=== PATIENT | female | born 1955 | race Caucasian/White ===

== ENCOUNTER → 2020-04-01 14:22 | Outpatient (BNVA) | payer MEDICARE, MEDICAID, SELFPAY | PROVIDERS: PCP Family Medicine; Visit Provider Family Medicine | DX: E11.9 Type 2 diabetes mellitus without complications (principal); J44.9 Chronic obstructive pulmonary disease, unspecified; I10 Essential (primary) hypertension; K21.9 Gastro-esophageal reflux disease without esophagitis; F32.9 Major depressive disorder, single episode, unspecified; L30.9 Dermatitis, unspecified | CPT/HCPCS: 80053; 80061; 83036; 84443; 85025 ==

== ENCOUNTER → 2020-10-07 15:34 | Outpatient (BNVA) | payer MEDICARE, MEDICAID, SELFPAY | PROVIDERS: PCP Family Medicine; Visit Provider Family Medicine | DX: E11.9 Type 2 diabetes mellitus without complications (principal); I10 Essential (primary) hypertension; J44.9 Chronic obstructive pulmonary disease, unspecified; K21.9 Gastro-esophageal reflux disease without esophagitis | CPT/HCPCS: 80053; 80061; 83036; 84443; 85025 ==

== ENCOUNTER → 2020-11-26 15:57 | Outpatient (BNVA) | payer MEDICARE, MEDICAID, SELFPAY | PROVIDERS: PCP Family Medicine; Visit Provider Nurse Practitioner Family | DX: E11.9 Type 2 diabetes mellitus without complications (principal); J02.9 Acute pharyngitis, unspecified | CPT/HCPCS: 87071; 87880 ==

== ENCOUNTER → 2021-03-25 15:48 | Outpatient (BNVA) | payer MEDICARE, MEDICAID, SELFPAY | PROVIDERS: PCP Family Medicine; Visit Provider Family Medicine | DX: K21.9 Gastro-esophageal reflux disease without esophagitis (principal); E11.9 Type 2 diabetes mellitus without complications; I10 Essential (primary) hypertension; J43.1 Panlobular emphysema | CPT/HCPCS: 80053; 80061; 83036; 84443 ==

== ENCOUNTER → 2021-06-09 11:35 | Outpatient (BNVA) | payer MEDICARE, MEDICAID, SELFPAY | PROVIDERS: PCP Family Medicine; Visit Provider Family Medicine | DX: E11.9 Type 2 diabetes mellitus without complications (principal); E78.5 Hyperlipidemia, unspecified; J43.1 Panlobular emphysema; K21.9 Gastro-esophageal reflux disease without esophagitis | CPT/HCPCS: 80053; 80061; 83036; 84443; 85025 ==

== ENCOUNTER → 2021-10-08 14:17 | Outpatient (BNVA) | payer MEDICARE, MEDICAID, SELFPAY | PROVIDERS: PCP Family Medicine; Visit Provider Nurse Practitioner Family | DX: J43.1 Panlobular emphysema (principal); K62.89 Other specified diseases of anus and rectum; R19.8 Other specified symptoms and signs involving the digestive system and abdomen; I10 Essential (primary) hypertension; E11.9 Type 2 diabetes mellitus without complications; K92.1 Melena | CPT/HCPCS: 71046; 80053; 83036 ==

== ENCOUNTER 2021-12-21 08:20 | Outpatient (CLI) | payer MEDICARE, MEDICAID, SELFPAY ==
--- NOTE | 2021-12-21 08:46 | MM_ITS ---
WS: [id number] BILATERAL DIGITAL DIAGNOSTIC MAMMOGRAM MAMMOGRAPHY WITH CAD CLINICAL INFORMATION: lump left breast TECHNIQUE: Bilateral CC, MLO, and ML views. FINDINGS: Scattered fibroglandular densities bilaterally. Vascular calcification. Palpable marker left breast. No definite underlying mammographic abnormalities. Ultrasound is pending. Right breast is unremarkable. ULTRASOUND BREAST LEFT TECHNIQUE: Ultrasound left breast focused area of concern. CLINICAL INFORMATION: lump left breast FINDINGS: Ultrasound left breast at the 10:00 position area of palpable concern 2 cm from the nipple. There is a hypoechoic ovoid lesion with some internal echogenicity. This is taller than wide on some images. S uggestion of a tiny amount of nodularity peripherally. This is not definitely cystic and Recommend fu rther evaluation with ultrasound-guided biopsy/aspiration. MM/[place] [id number] IMPRESSION: BI-RADS: 4-Suspicious Finding-Biopsy Should Be Considered FOLLOW UP: US Guided Biopsy Recommended RECOMMEND ULTRASOUND-GUIDED BIOPSY OF THE PALPABLE LESION AT THE 10:00 POSITION
--- NOTE | 2021-12-21 09:00 | US_ITS ---
WS: [id number] BILATERAL DIGITAL DIAGNOSTIC MAMMOGRAM MAMMOGRAPHY WITH CAD CLINICAL INFORMATION: lump left breast TECHNIQUE: Bilateral CC, MLO, and ML views. FINDINGS: Scattered fibroglandular densities bilaterally. Vascular calcification. Palpable marker left breast. No definite underlying mammographic abnormalities. Ultrasound is pending. Right breast is unremarkable. ULTRASOUND BREAST LEFT TECHNIQUE: Ultrasound left breast focused area of concern. CLINICAL INFORMATION: lump left breast FINDINGS: Ultrasound left breast at the 10:00 position area of palpable concern 2 cm from the nipple. There is a hypoechoic ovoid lesion with some internal echogenicity. This is taller than wide on some images. S uggestion of a tiny amount of nodularity peripherally. This is not definitely cystic and Recommend fu rther evaluation with ultrasound-guided biopsy/aspiration. US/US breast LT limited* [id number] IMPRESSION: BI-RADS: 4-Suspicious Finding-Biopsy Should Be Considered FOLLOW UP: US Guided Biopsy Recommended RECOMMEND ULTRASOUND-GUIDED BIOPSY OF THE PALPABLE LESION AT THE 10:00 POSITION
--- NOTE | 2021-12-21 09:30 | US_ITS ---
WS: [id number] INDICATION: Ultrasound soft tissue TECHNIQUE: Ultrasound soft tissue area of concern left scapula FINDINGS: Ultrasound soft tissue area of concern below the left scapula. No evidence of suspicious cy stic or solid lesion. Heterogeneous tissue in the area of concern nonspecific but may represent subcu taneous lipoma. This could be confirmed with CT if continued clinical concern. US/US soft tissue/extremity [id number] IMPRESSION: Heterogeneous tissue in the area of concern nonspecific but may rep resent subcutaneous incidental lipoma. CT scapula could be obtained for confirm ation and better anatomic detail.
== END 2021-12-21 08:21 | disposition home or self-care (01) ==
LOC: RAD 08:28
PROVIDERS: PCP Family Medicine; Visit Provider Nurse Practitioner Family
DX: M79.89 Other specified soft tissue disorders (principal); N63.22 Unspecified lump in the left breast, upper inner quadrant
CPT/HCPCS: 76642; 76882; 77066

== ENCOUNTER 2021-12-22 08:10 | Outpatient (CLI) | payer MEDICARE, MEDICAID, SELFPAY ==
--- NOTE | 2021-12-22 10:00 | CT_ITS ---
WS: [id number] CT ABDOMEN AND PELVIS WITH CONTRAST HISTORY: K42.9 - Umbilical hernia without obstruction or gangrene TECHNIQUE: Imaging performed of the abdomen and pelvis with IV contrast. Single phase imaging of the abdomen. Coronal and sagittal reformats are submitted. All CT scans at [facility] use at [address] one of these dose optimization techniques: automated exposure control; mA and/or kV adjustment per patient size (includes targeted exams where dose is matched to clinical indication); or iterative re construction. IV CONTRAST: Omnipaque 300; 75 mL IV. Oral contrast: Yes. DLP: 696.84 mGy.cm COMPARISON: None available. Lower thorax: Lung bases are clear. Heart is normal size. No hiatal hernia. Liver/biliary system: Normal size with no intrahepatic dilatation. Gallbladder: Gallbladder is contracted. Stones are present within the gallbladder lumen. No adjacent inflammation. Normal bowel duct. Pancreas: Normal size pancreas and pancreatic duct. No adjacent inflammation. Spleen: Normal size spleen. No mass or infarct. Adrenal glands: Normal. Right kidney: Normal. Left kidney: Normal. Aorta: Mild atherosclerosis with no aneurysm. Lymphadenopathy: None. Free fluid: None. GI tract: Marked dilatation of the stomach with fluid and contrast. The antrum and proximal duodenum are distended. There is no obstructive pattern identified. Good oral contrast distributed throughout the small bowel. There is mild diffuse constipation. The appendix is normal. Abdominal wall: Fat-containing umbilical hernia. The hernia is 14 mm. Pelvis: No free fluid or adenopathy within the pelvis. Mildly atrophic uterus as expected. No adnexal masses. Bones: Increase in the lumbar lordosis. No fracture. CT/CT abdomen pelvis w con* [id number] IMPRESSION: 1. No acute abdominal or pelvic abnormalities are identified. 2. Cholelithiasis without acute cholecystitis. 3. Moderate distention of the stomach and proximal duodenum. No obstruction is evident. Normal distribution of oral contrast throughout the small bowel. 4. Diffuse constipation. 5. Small fat-containing umbilical hernia. 6. No ascites or adenopathy.
[2021-12-22 10:04] LABS: Blood Urea Nitrogen 14 mg/dL (8-23); Glomerular Filtration Rate 71.3 mL/min (90-130)
[2021-12-22] MEDS: iohexol 300 mg/mL 100 mL Btl IV (10:14)
[2021-12-22 10:47] LABS: Blood Urea Nitrogen 14 mg/dL (8-23); Glomerular Filtration Rate 99.4 mL/min (90-130)
== END 2021-12-22 08:11 | disposition home or self-care (01) ==
LOC: RAD 08:12
PROVIDERS: PCP Family Medicine; Visit Provider Surgery
DX: K42.9 Umbilical hernia without obstruction or gangrene (principal); K62.5 Hemorrhage of anus and rectum; K59.00 Constipation, unspecified; K80.20 Calculus of gallbladder without cholecystitis without obstruction
CPT/HCPCS: 74177; 82565; 84520

== ENCOUNTER → 2022-01-03 11:45 | Outpatient (BNVA) | payer MEDICARE, MEDICAID, SELFPAY | PROVIDERS: PCP Family Medicine; Visit Provider Surgery | DX: Z20.822 Contact with and (suspected) exposure to COVID-19 (principal) | CPT/HCPCS: 87635 ==

== ENCOUNTER 2022-01-06 06:48 | Day surgery (SDC) | payer MEDICARE, MEDICAID, SELFPAY ==
[2022-01-03 12:54] VITALS: BMI 19.9
--- NOTE | 2022-01-06 07:28 | ANES.PREANE2 ---
Pre-Anesthetic Assessment Height/Weight: Height 1.52 m Weight 46.266 kg Preop Diagnosis: Blood in stool Operation Date: 01/06/22 08:30 Proposed Procedures p Colonoscopy 52720 K62.5 K42.9(Not Applicable) - King Alberto MD Familial anesthetic complications: None Was Beta Alejandro taken within 24 hours: Yes Was Clonidine taken within 24 hours: N/A Social No alcohol and No tobacco Exam alert, oriented x 3, clear to auscultation bilaterally and regular rate & rhythm Airway Submandibular: within normal limits Cervical ROM: within normal limits Mallampati: Class II Dentition: full Pulmonary Asthma and Chronic Obstructive Pulmonary Disease CV/HEM Hypertension GI Gastroesophageal Reflux Disease Metabolic Diabetes Mellitus Anesthetic Plan ASA status: 3 Anesthesia: MAC Risk of > 500 ml blood loss (7ml/kg in children): No Medications/Allergies Home Medications Medication Instructions Recorded Confirmed Last Taken Type blood-glucose meter (Blood Glucose #1 ea 11/26/20 01/03/22 Unknown Rx Monitoring) Calcium And Magnesium 1 tab PO DAILY 01/03/22 01/03/22 Unknown History Ventolin HFA 90 mcg/actuation See Rx Instructions .ROUTE 01/03/22 01/03/22 Unknown Rx aerosol inhaler (albuterol sulfate) .COMPLEX #36 gram NS ascorbic acid (vitamin C) 1,000 mg 1,000 mg PO DAILY 01/03/22 01/03/22 Unknown History tablet (Vitamin C) blood sugar diagnostic (True #100 ea 01/03/22 01/03/22 Unknown Rx Metrix Glucose Test Strip) cholecalciferol (vitamin D3) 1,250 See Rx Instructions .ROUTE 01/03/22 01/03/22 Unknown Rx mcg (50,000 unit) capsule (Optimal .COMPLEX #4 cap D3) cyanocobalamin (vitamin B-12) 500 500 mcg PO DAILY 01/03/22 01/03/22 Unknown History mcg tablet (Vitamin B-12) liraglutide 0.6 mg/0.1 mL (18 mg/3 See Rx Instructions .ROUTE 01/03/22 01/03/22 Unknown Rx mL) subcutaneous pen injector .COMPLEX #9 ml (Victoza 2-Trey) metformin 1,000 mg tablet,extended 1,000 mg PO BID #180 tab 01/03/22 01/03/22 Unknown Rx release 24hr metoprolol succinate 50 mg See Rx Instructions .ROUTE 01/03/22 01/03/22 Unknown Rx tablet,extended release 24 hr .COMPLEX #90 tablet montelukast 10 mg tablet 10 mg PO DAILY #90 tab 01/03/22 01/03/22 Unknown Rx (Singulair) multivitamin 1 tab PO DAILY 01/03/22 01/03/22 Unknown History omeprazole 20 mg capsule,delayed See Rx Instructions .ROUTE 01/03/22 01/03/22 Unknown Rx release .COMPLEX #180 cap paroxetine HCl 40 mg tablet See Rx Instructions .ROUTE 01/03/22 01/03/22 Unknown Rx .COMPLEX #45 tab theophylline 400 mg 400 mg PO BID 90 Days #180 tab 01/03/22 01/03/22 Unknown Rx tablet,extended release 24 hr triamcinolone acetonide 0.1 % See Rx Instructions .ROUTE 01/03/22 01/03/22 Unknown Rx topical cream .COMPLEX #80 gm zinc 50 mg capsule 50 mg PO DAILY 01/03/22 01/03/22 Unknown History Allergies Allergy/AdvReac Type Severity Reaction Status Date / Time fenofibrate [From Tricor] Allergy Unknown Unknown Verified 01/03/22 12:48 Penicillins Allergy Unknown Unknown Verified 01/03/22 12:48 simvastatin [From Zocor] Allergy Unknown UNKNOWN Verified 01/03/22 12:48 tizanidine [From Zanaflex] Allergy Unknown UNKNOWN Verified 01/03/22 12:48 [facility] Anesthesia Medical History Chronic obstructive pulmonary disease Diabetes mellitus Social History Smoking and tobacco status: never smoked Data Anesthesia Cardiac Studies: No Data to Display
[2022-01-06 07:33] VITALS: BP 107/81; PULSE 90; RESP 18; TEMP 36.9; O2SAT 99
[2022-01-06] MEDS: sodium chloride 0.9% 1,000 ML 30 ML IV (07:48)
--- NOTE | 2022-01-06 08:24 | P.HP_ITS ---
Same Day Surgery H&P Indication for Procedure/HPI DATE OF PROCEDURE: January 06, 2022 CHIEF COMPLAINT/INDICATIONFOR SURGICAL PROCEDURE: Rectal discharge PREOP DIAGNOSIS: Blood in stool PLANNED PROCEDURE: Operation Date: 01/06/22 08:30 Proposed Procedures p Colonoscopy 61647 K62.5 K42.9(Not Applicable) - King Alebrto MD 10/21/21 This is a pleasant 66 years old female patient comes today escorted by her spouse complaining of rectal discharge associated with blood in stool.? Patient reports that the discharge sometimes can be clear, reports also that she had a colonoscopy about 24 years ago because she had diarrhea and there was no significant findings at the time.? Denies history of colon cancer and she did have nonintentional weight loss with Covid exposure few months ago.? Also patient reports that she has abdominal wall hernia that has been bothering her for some time. Interim history 11/05/2022 Patient comes today for diagnostic colonoscopy ROS All systems have been reviewed negative except as per the above or per problem list Medications/Allergies* Home Medications Medication Instructions Recorded Confirmed Type Calcium And Magnesium 1 tab PO DAILY 01/03/22 01/06/22 History ascorbic acid (vitamin C) 1,000 mg 1,000 mg PO DAILY 01/03/22 01/06/22 History tablet (Vitamin C) cyanocobalamin (vitamin B-12) 500 500 mcg PO DAILY 01/03/22 01/06/22 History mcg tablet (Vitamin B-12) multivitamin 1 tab PO DAILY 01/03/22 01/06/22 History zinc 50 mg capsule 50 mg PO DAILY 01/03/22 01/06/22 History albuterol sulfate 90 mcg/actuation 2 puff INHALATION QID PRN 01/06/22 01/06/22 History aerosol inhaler (Ventolin HFA) cholecalciferol (vitamin D3) 1,250 1,250 mcg PO DAILY 01/06/22 01/06/22 History mcg (50,000 unit) capsule (Optimal D3) liraglutide 0.6 mg/0.1 mL (18 mg/3 1.8 mg SUBCUT DAILY 01/06/22 01/06/22 History mL) subcutaneous pen injector (Victoza 2-Trey) metoprolol succinate 50 mg 25 mg PO BID 01/06/22 01/06/22 History tablet,extended release 24 hr omeprazole 20 mg capsule,delayed 40 mg PO DAILY 01/06/22 01/06/22 History release paroxetine HCl 40 mg tablet 20 mg PO DAILY 01/06/22 01/06/22 History triamcinolone acetonide 0.1 % 1 applic TOPICAL BID 01/06/22 01/06/22 History topical cream Allergies/Adverse Reactions Allergy/AdvReac Type Severity Reaction Status Date / Time fenofibrate [From Tricor] Allergy Unknown Unknown Verified 01/06/22 08:50 Penicillins Allergy Unknown Unknown Verified 01/06/22 08:50 simvastatin [From Zocor] Allergy Unknown UNKNOWN Verified 01/06/22 08:50 tizanidine [From Zanaflex] Allergy Unknown UNKNOWN Verified 01/06/22 08:50 Current Medications: Generic Name Dose Route Start Last Admin Trade Name Freq PRN Reason Stop Dose Admin Sodium Chloride 1,000 mls @ 30 mls/hr 01/06/22 07:30 01/06/22 07:48 Sodium Chloride 0.9% IV 01/07/22 07:29 30 mls/hr .Q24H ROE Administration Pertinent History/Comorbid Conditions* Medical History (Updated 10/08/21 @ 15:04 by Edith Peterson NP) Chronic obstructive pulmonary disease Diabetes mellitus Social History Smoking and tobacco status: never smoked Pertinent Exam Findings alert, oriented x 3 and procedure specific exam findings (Abdominal examination nontender nondistended soft) Recommendations Surgery/Procedure today (Colonoscopy with poss Bx) Coding Level of Care Code Acute Physician Industrial for Sandy Broderick
[2022-01-06 09:25] VITALS: BP 88/53; PULSE 72; RESP 16; TEMP 36.1; O2SAT 97
--- NOTE | 2022-01-06 09:33 | P.PCN_ITS ---
PACU note Exam: awake Disposition: discharged
--- NOTE | 2022-01-06 09:33 | PM.PACU ---
PACU note Exam: awake Disposition: discharged
[2022-01-06 09:42] VITALS: BP 116/82; PULSE 77; RESP 16; O2SAT 99
== END 2022-01-06 09:51 | disposition home or self-care (01) ==
PROVIDERS: PCP Family Medicine; Visit Provider Surgery
PROC: 0DJD8ZZ Inspection of Lower Intestinal Tract, Via Natural or Artificial Opening Endoscopic (ICD-10-PCS; CPT 45378; principal; 2022-01-06 08:30)
DX: K92.1 Melena (principal); D12.2 Benign neoplasm of ascending colon; J44.9 Chronic obstructive pulmonary disease, unspecified; E11.9 Type 2 diabetes mellitus without complications; I10 Essential (primary) hypertension; K21.9 Gastro-esophageal reflux disease without esophagitis
CPT/HCPCS: 45380; 88305; J2704; J7030

== ENCOUNTER 2022-01-07 12:08 | Outpatient (CLI) | payer MEDICARE, MEDICAID, SELFPAY ==
--- NOTE | 2022-01-07 12:23 | US_ITS ---
WS: [id number] ULTRASOUND-GUIDED LEFT BREAST BIOPSY HISTORY: LEFT breast lesion at 10:00, 2 cm from the nipple. COMPARISON: 12/21/2021 Procedure, risks and complications are explained to the patient. Medications are reviewed. Consent is obtained. The mass in the LEFT breast is localized with ultrasound. Skin is cleansed with ChloraPrep and anesth etized with 1% buffered lidocaine. Small dermatome is made. Under sterile conditions mass is biopsied with a 18-gauge Achieve needle. Multiple core biopsies are performed. Material placed in formalin an d sent to pathology for review. No complications encountered. Breast tissue marker ([facility] ultrasound enhanced ribbon): None. Mass completely collapsed after the fir st biopsy. Patient left the radiology suite with no complications. Patient is instructed to return to [facility] or [facility] with any concerns. US/[place] [id number] IMPRESSION: 1. Uncomplicated core needle biopsy LEFT breast mass at 10:00. Mass completely collapsed after the first biopsy therefore thought to be a cyst. Single specim en is submitted to pathology. PATHOLOGY: Benign breast tissue with surrounding fibroadipose tissue and pigmen mihaela histiocytosis. No malignancy. RECOMMENDATION: Return to annual screening mammography.
== END 2022-01-07 12:09 | disposition home or self-care (01) ==
LOC: RAD 12:11
PROVIDERS: PCP Nurse Practitioner Family; Visit Provider Nurse Practitioner Family
DX: N63.22 Unspecified lump in the left breast, upper inner quadrant (principal)
CPT/HCPCS: 19083; 88305

== ENCOUNTER → 2022-03-08 11:38 | Outpatient (BNVA) | payer MEDICARE, MEDICAID, SELFPAY | PROVIDERS: PCP Nurse Practitioner Family; Visit Provider Nurse Practitioner Family | DX: E78.5 Hyperlipidemia, unspecified (principal); E11.9 Type 2 diabetes mellitus without complications; K21.9 Gastro-esophageal reflux disease without esophagitis; I10 Essential (primary) hypertension; J44.9 Chronic obstructive pulmonary disease, unspecified | CPT/HCPCS: 80053; 80061; 83036 ==

== ENCOUNTER 2022-04-05 06:52 | Outpatient (CLI) | payer MEDICARE, MEDICAID, SELFPAY ==
--- NOTE | 2022-04-05 07:00 | US_ITS ---
WS: [id number] RIGHT UPPER QUADRANT ULTRASOUND HISTORY: R14.0 - Abdominal distension (gaseous) COMPARISON: 12/22/2021 Liver: 15.7 cm in length. Normal size liver. No bile duct dilatation or mass. Portal Vein: Normal hepatopetal flow with monophasic waveform. Gallbladder: Normally distended gallbladder. Within the gallbladder lumen is a focal area of shadowin g which corresponds to the finding on the prior CT. This is an irregular shaped stone with a maximum diameter 14 mm. CBD: 0.5 cm Pancreas: Normal size and echogenicity. Right kidney: 9.9 cm in length. Normal size and echogenicity. No hydronephrosis or mass. Aorta and IVC: Unremarkable abdominal aorta and IVC. No ascites. US/US gall bladder [id number] IMPRESSION: 1. Cholelithiasis. No evidence for acute cholecystitis. 2. No bile duct dilatation.
== END 2022-04-05 06:53 | disposition home or self-care (01) ==
PROVIDERS: PCP Nurse Practitioner Family; Visit Provider Surgery
DX: R14.0 Abdominal distension (gaseous) (principal); R10.9 Unspecified abdominal pain; K80.20 Calculus of gallbladder without cholecystitis without obstruction
CPT/HCPCS: 76705

== ENCOUNTER → 2022-04-13 10:49 | Outpatient (BNVA) | payer MEDICARE, MEDICAID, SELFPAY | PROVIDERS: PCP Nurse Practitioner Family; Visit Provider Surgery | DX: K42.9 Umbilical hernia without obstruction or gangrene (principal); K80.20 Calculus of gallbladder without cholecystitis without obstruction | CPT/HCPCS: 99213 ==

== ENCOUNTER → 2022-08-23 11:15 | Outpatient (BNVA) | payer MEDICARE, MEDICAID, SELFPAY | PROVIDERS: PCP Nurse Practitioner Family; Visit Provider Nurse Practitioner Family | DX: E78.5 Hyperlipidemia, unspecified (principal); E11.9 Type 2 diabetes mellitus without complications; K21.9 Gastro-esophageal reflux disease without esophagitis; I10 Essential (primary) hypertension; F43.21 Adjustment disorder with depressed mood; J43.1 Panlobular emphysema | CPT/HCPCS: 80053; 80061; 83036 ==

== ENCOUNTER → 2023-03-28 14:20 | Outpatient (BNVA) | payer MEDICARE, MEDICAID, SELFPAY | PROVIDERS: PCP Nurse Practitioner Family; Visit Provider Nurse Practitioner Family | DX: E78.5 Hyperlipidemia, unspecified (principal); E11.9 Type 2 diabetes mellitus without complications; K21.9 Gastro-esophageal reflux disease without esophagitis; J44.9 Chronic obstructive pulmonary disease, unspecified; I10 Essential (primary) hypertension; J32.9 Chronic sinusitis, unspecified; E55.9 Vitamin D deficiency, unspecified; F43.21 Adjustment disorder with depressed mood | CPT/HCPCS: 80053; 80061; 82306; 83036; 84443 ==

== ENCOUNTER → 2023-10-23 16:54 | Outpatient (BNVA) | payer MEDICARE, MEDICAID, SELFPAY | PROVIDERS: PCP Nurse Practitioner Family; Visit Provider Nurse Practitioner Family | DX: E11.9 Type 2 diabetes mellitus without complications (principal); E78.5 Hyperlipidemia, unspecified; K21.9 Gastro-esophageal reflux disease without esophagitis; I10 Essential (primary) hypertension | CPT/HCPCS: 80053; 80061; 82043; 83036 ==

== ENCOUNTER → 2024-05-15 16:46 | Outpatient (BNVA) | payer MEDICARE, MEDICAID, SELFPAY | PROVIDERS: PCP Nurse Practitioner Family; Visit Provider Nurse Practitioner Family | DX: I10 Essential (primary) hypertension (principal); R19.7 Diarrhea, unspecified; E11.9 Type 2 diabetes mellitus without complications; E78.5 Hyperlipidemia, unspecified | CPT/HCPCS: 80053; 80061; 83036; 84443; 85025 ==

== ENCOUNTER → 2024-10-09 14:28 | Outpatient (BNVA) | payer MEDICARE, MEDICAID, SELFPAY | PROVIDERS: PCP Nurse Practitioner Family; Visit Provider Nurse Practitioner Family | DX: E11.9 Type 2 diabetes mellitus without complications (principal) | CPT/HCPCS: 80053; 80061; 83036; 84443; 85025 ==

== ENCOUNTER → 2024-10-23 09:14 | Outpatient (BNVA) | payer MEDICARE, MEDICAID, SELFPAY | PROVIDERS: PCP Nurse Practitioner Family; Referring Provider Nurse Practitioner Family; Visit Provider Surgery | DX: K43.9 Ventral hernia without obstruction or gangrene (principal); Z12.11 Encounter for screening for malignant neoplasm of colon; R03.0 Elevated blood-pressure reading, without diagnosis of hypertension | CPT/HCPCS: 99214 ==

== ENCOUNTER 2024-10-24 09:10 | Outpatient (CLI) | payer MEDICARE, MEDICAID, SELFPAY ==
--- NOTE | 2024-10-24 09:30 | US_ITS ---
WS: [id number] ULTRASOUND ABDOMEN CLINICAL INFORMATION: K42.9 - Umbilical hernia without obstruction or gangrene COMPARISON: None. FINDINGS: Fat-containing umbilical hernia. No herniated bowel. Liver Size: Normal. Craniocaudal length: 14.3 cm. Echogenicity: Normal. Surface nodularity: None. Mass (size and location): None. Bile ducts Intrahepatic ducts: Normal. Common bile duct diameter: 0.3 cm. Gallbladder Cholelithiasis Gallstones: Present Gallbladder sludge: None. Gallbladder wall thickening: None. Pericholecystic fluid: None. Sonographic Baca sign: Absent. Pancreas Normal as visualized. Spleen difficult to visualize Splenomegaly: None. Craniocaudal length: 12.0 cm. Right kidney: Normal. Hydronephrosis: None. Size: 9.2 cm x 4.6 cm x 3.8 cm Left kidney: Normal. Hydronephrosis: None. Size: 8.7 cm x 4.4 cm x 4.4 cm. Abdominal aorta and IVC Visualized portions are normal. Ascites: None. US/US abdomen complete* [id number] IMPRESSION: 1. Fat-containing umbilical hernia. No visualized herniated bowel. 2. Cholelithiasis 3. With normal common bile duct. 4. Otherwise normal exam
== END 2024-10-24 09:11 | disposition home or self-care (01) ==
LOC: RAD 09:11
PROVIDERS: PCP Nurse Practitioner Family; Visit Provider Nurse Practitioner Family
DX: K42.9 Umbilical hernia without obstruction or gangrene (principal); K80.20 Calculus of gallbladder without cholecystitis without obstruction
CPT/HCPCS: 76700

== ENCOUNTER 2024-11-06 08:00 | Outpatient (CLI) | payer MEDICARE, MEDICAID, SELFPAY ==
[2024-11-06] MEDS: iohexol 350 mg/mL 500 mL Btl (per mL) PO (08:08)
--- NOTE | 2024-11-06 09:00 | CTR_ITS ---
PROCEDURE INFORMATION: Exam: CT Abdomen And Pelvis With Contrast Exam date and time: 11/06/2024 9:19 AM Age: 69 years old Clinical indication: Condition or disease; Complications not specified; Other: Spigelian hernia TECHNIQUE: Imaging protocol: Computed tomography of the abdomen and pelvis with contrast. Radiation optimization: All CT scans at this facility use at least one of these dose optimization techniques: automated exposure control; mA and/or kV adjustment per patient size (includes targeted exams where dose is matched to clinical indication); or iterative reconstruction. Contrast material: OMNI 350; Contrast volume: 100 ml; Contrast route: INTRAVENOUS (IV); COMPARISON: CT abdomen pelvis w con* [id number] 12/22/2021 10:08 AM RADIATION DOSE METRICS: Total DLP (mGy-cm): 250.61 FINDINGS: Lungs: Clear lung bases. Liver: New mild, diffuse fatty infiltration of the liver. New moderate hepatomegaly. Otherwise, unremarkable liver. Gallbladder and biliary ducts: Unchanged tiny gallstone in the gallbladder. Otherwise, unremarkable. Pancreas: Normal. No ductal dilation. Spleen: Normal. No splenomegaly. Adrenal glands: Normal. No mass. Kidneys and ureters: Normal. No hydronephrosis. Stomach and bowel: Increased thickening of the wall of the gastric antrum, pyloric channel, and duodenum consistent with inflammation. Possible new 5 cm in length apple-core lesion in the colon near the ileocecal valve could be cancer. Otherwise, unremarkable. Appendix: No evidence of appendicitis. Intraperitoneal space: Unremarkable. No free air. No significant fluid collection. Vasculature: Unchanged small amount of arterial calcification. Otherwise, unremarkable. Lymph nodes: Unremarkable. No enlarged lymph nodes. Urinary bladder: Unremarkable as visualized. Reproductive: Unremarkable as visualized. Bones/joints: Unchanged mild scoliosis. Unchanged minimal and mild multilevel spondylosis. Otherwise, unremarkable. Soft tissues: Small fat containing benign-appearing umbilical hernia. This is unchanged. Otherwise, unremarkable visualized body wall. Otherwise, unremarkable soft tissues. CT/CT abdomen pelvis w con* [id number] IMPRESSION: 1. Increased thickening of the wall of the gastric antrum, pyloric channel, and duodenum consistent with inflammation. 2. Possible new 5 cm in length apple-core lesion in the colon near the ileocecal valve could be cancer. Colonoscopy is recommended. 3. New mild, diffuse fatty infiltration of the liver. 4. New moderate hepatomegaly. 5. No other acute findings. 6. Additional details as above. Unchanged.
[2024-11-06] MEDS: iohexol 350 mg/mL 500 mL Btl (per mL) IV (09:51)
== END 2024-11-06 08:01 | disposition home or self-care (01) ==
LOC: RAD 08:01
PROVIDERS: PCP Nurse Practitioner Family; Visit Provider Surgery
DX: K43.9 Ventral hernia without obstruction or gangrene (principal); K76.0 Fatty (change of) liver, not elsewhere classified; R16.0 Hepatomegaly, not elsewhere classified; M41.9 Scoliosis, unspecified; K42.9 Umbilical hernia without obstruction or gangrene; R93.5 Abnormal findings on diagnostic imaging of other abdominal regions, including retroperitoneum; M47.899 Other spondylosis, site unspecified
CPT/HCPCS: 74177

== ENCOUNTER → 2024-11-11 14:02 | Outpatient (BNVA) | payer MEDICARE, MEDICAID, SELFPAY | PROVIDERS: PCP Nurse Practitioner Family; Visit Provider Surgery | DX: K20.90 Esophagitis, unspecified without bleeding (principal); C18.9 Malignant neoplasm of colon, unspecified | CPT/HCPCS: 99213 ==

== ENCOUNTER 2024-11-19 09:24 | Day surgery (SDC) | payer MEDICARE, MEDICAID, SELFPAY ==
--- NOTE | 2024-11-19 09:30 | W.PM.OPSFHP ---
Same Day Surgery H&P Indication for Procedure/HPI DATE OF PROCEDURE: November 19, 2024 CHIEF COMPLAINT/INDICATIONFOR SURGICAL PROCEDURE: abdominal pain PREOP DIAGNOSIS: abdominal pain PLANNED PROCEDURE: Operation Date: 11/19/24 10:30 Proposed Procedures p EGD 53597, 59028, G0105, K20.90, C18.9(Not Applicable) - Chuck Chong MD s Colonoscopy(Not Applicable) - Chuck Chong MD Medications/Allergies* Home Medications Medication Instructions Recorded Confirmed Type Calcium And Magnesium 1 tab PO DAILY 01/03/22 11/14/24 History ascorbic acid (vitamin C) 1,000 mg 1,000 mg PO DAILY 01/03/22 11/14/24 History tablet (Vitamin C) cyanocobalamin (vitamin B-12) 500 500 mcg PO DAILY 01/03/22 11/14/24 History mcg tablet (Vitamin B-12) multivitamin 1 tab PO DAILY 01/03/22 11/14/24 History zinc 50 mg capsule 50 mg PO DAILY 01/03/22 11/14/24 History albuterol sulfate 90 mcg/actuation 2 puff inhalation QID PRN 11/14/24 11/14/24 History aerosol inhaler Shortness Of Breath Or Wheezing biotin 5,000 mcg chewable tablet 5,000 mcg PO DAILY 11/14/24 11/14/24 History garlic 1,000 mg capsule 1,000 mg PO DAILY 11/14/24 11/14/24 History omega-3 fatty acids-fish oil 684 2 cap PO DAILY 11/14/24 11/14/24 History mg-1,200 mg capsule,delayed release triamcinolone acetonide 0.1 % 1 applic topical BID 11/14/24 11/14/24 History topical cream Allergies/Adverse Reactions Allergy/AdvReac Type Severity Reaction Status Date / Time fenofibrate [From Tricor] Allergy Unknown Unknown Verified 11/11/24 14:06 Penicillins Allergy Unknown Unknown Verified 11/11/24 14:06 simvastatin [From Zocor] Allergy Unknown UNKNOWN Verified 11/11/24 14:06 tizanidine [From Zanaflex] Allergy Unknown UNKNOWN Verified 11/11/24 14:06 tirzepatide [From Mounjaro] AdvReac Severe ADR-Gastrointestinal Verified 11/11/24 14:06 Upset Pertinent History/Comorbid Conditions* Medical History (Updated 10/23/23 @ 14:24 by Edith Peterson NP) Diabetes mellitus Chronic obstructive pulmonary disease Family History (Updated 10/23/24 @ 09:24 by OBDULIO Greer) Diabetes Father Social History Smoking and tobacco/nicotine status: never used tobacco/nicotine Pertinent Exam Findings alert, oriented x 3, clear to auscultation bilaterally, regular rate & rhythm and procedure specific exam findings abdomen soft, nt, nd Recommendations Surgery/Procedure today Other Plans: EGD/colonoscopy Coding Level of Care Code Acute Code for Chg Fwd
[2024-11-19 09:47] VITALS: BP 119/84; PULSE 88; RESP 18; TEMP 36.4; O2SAT 99
[2024-11-19] MEDS: sodium chloride 0.9% 500 ML 15 ML IV (09:52)
--- NOTE | 2024-11-19 09:57 | P.ANESASSM_ITS ---
Pre-Anesthetic Assessment Height/Weight: Height 1.57 m Weight 49.442 kg Temp Pulse Resp BP Pulse Ox O2 Del Method 97.5 F L 88 18 119/84 99 Room Air 11/19/24 09:47 11/19/24 09:47 11/19/24 09:47 11/19/24 09:47 11/19/24 09:47 11/19/24 09:47 Preop Diagnosis: abdominal pain Operation Date: 11/19/24 10:30 Proposed Procedures p EGD 10154, 39490, G0105, K20.90, C18.9(Not Applicable) - Chuck Chong MD s Colonoscopy(Not Applicable) - Chuck Chong MD Familial anesthetic complications: none Was Beta Alejandro taken within 24 hours: N/A Was Clonidine taken within 24 hours: N/A Last intake: Intake Last Liquid Date 11/18/24 Last Liquid Time 23:00 Last Solid Date 11/17/24 Last Solid Time 23:00 Social No alcohol and No tobacco Exam alert, oriented x 3, clear to auscultation bilaterally and regular rate & rhythm Airway Submandibular: within normal limits Cervical ROM: within normal limits Mallampati: Class II Dentition: false Comments: Comments: uppers false History/ROS No significant history except as noted Pulmonary Asthma CV/HEM Hypertension None reported Hepatic None reported GI Gastroesophageal Reflux Disease and Hiatal Hernia Metabolic Diabetes Mellitus [facility] [place] None reported Neuropsych None reported Anesthetic Plan ASA status: 3 Anesthesia: MAC Risk of > 500 ml blood loss (7ml/kg in children): No Medications/Allergies Home Medications Medication Instructions Recorded Confirmed Last Taken Type Calcium And Magnesium 1 tab PO DAILY 01/03/22 11/19/24 11/17/24 History ascorbic acid (vitamin C) 1,000 mg 1,000 mg PO DAILY 01/03/22 11/19/24 11/17/24 History tablet (Vitamin C) cyanocobalamin (vitamin B-12) 500 500 mcg PO DAILY 01/03/22 11/19/24 11/17/24 History mcg tablet (Vitamin B-12) multivitamin 1 tab PO DAILY 01/03/22 11/19/24 11/17/24 History zinc 50 mg capsule 50 mg PO DAILY 01/03/22 11/19/24 11/17/24 History blood-glucose meter (Blood Glucose #1 ea 10/23/23 11/11/24 Unknown Rx Monitoring kit) blood-glucose meter (Accu-Chek #1 ea 01/29/24 11/11/24 Unknown Rx Guide Glucose Meter) blood sugar diagnostic (Blood #50 ea 02/14/24 11/11/24 Unknown Rx Glucose Test strips) lancets (Accu-Chek Softclix #100 ea 02/14/24 11/11/24 Unknown Rx Lancets) Singulair 10 mg tablet 10 mg PO DAILY #90 tabs 10/09/24 11/19/24 11/17/24 Rx (montelukast) cetirizine 10 mg tablet (Zyrtec) 10 mg PO DAILY 90 days #90 tabs 10/09/24 11/19/24 11/17/24 Rx cholecalciferol (vitamin D3) 50 50 mcg PO DAILY 90 days #90 caps 10/09/24 11/19/24 11/17/24 Rx mcg (2,000 unit) capsule metformin 500 mg tablet,extended 1,000 mg (2 x 500 mg) PO BID 90 10/09/24 11/19/24 11/17/24 Rx release 24 hr days #360 tabs metoprolol succinate 50 mg 25 mg (1/2 x 50 mg) PO BID 90 days 10/09/24 11/19/24 11/17/24 Rx tablet,extended release 24 hr #90 tabs omeprazole 20 mg capsule,delayed 40 mg (2 x 20 mg) PO DAILY 90 days 10/09/24 11/19/24 11/17/24 Rx release #180 caps paroxetine HCl 10 mg tablet (Paxil) 10 mg PO DAILY #90 tabs 10/09/24 11/19/24 11/17/24 Rx theophylline 400 mg 400 mg PO DAILY 90 days #90 tabs 10/09/24 11/19/24 11/17/24 Rx tablet,extended release 24 hr albuterol sulfate 90 mcg/actuation 2 puff inhalation QID PRN 11/14/24 11/19/24 11/17/24 History aerosol inhaler Shortness Of Breath Or Wheezing biotin 5,000 mcg chewable tablet 5,000 mcg PO DAILY 11/14/24 11/19/24 11/17/24 History garlic 1,000 mg capsule 1,000 mg PO DAILY 12/11/19/24 11/17/24 History omega-3 fatty acids-fish oil 684 2 cap PO DAILY 11/14/24 11/19/24 11/17/24 History mg-1,200 mg capsule,delayed release triamcinolone acetonide 0.1 % 1 applic topical BID 11/14/24 11/19/24 11/17/24 History topical cream Allergies Allergy/AdvReac Type Severity Reaction Status Date / Time fenofibrate [From Tricor] Allergy Unknown Unknown Verified 11/11/24 14:06 Penicillins Allergy Unknown Unknown Verified 11/11/24 14:06 simvastatin [From Zocor] Allergy Unknown UNKNOWN Verified 11/11/24 14:06 tizanidine [From Zanaflex] Allergy Unknown UNKNOWN Verified 11/11/24 14:06 tirzepatide [From Mounjaro] AdvReac Severe ADR-Gastrointestinal Verified 11/11/24 14:06 Upset Current Medications Generic Name Dose Route Start Last Admin Trade Name Freq PRN Reason Stop Dose Admin Sodium Chloride 500 mls @ 15 mls/hr 11/19/24 09:31 11/19/24 09:52 Sodium Chloride 0.9% IV 11/20/24 09:30 15 mls/hr .Q24H PRN Administration COLONOSCOPY FLUIDS PFSH Anesthesia Medical History (Updated 11/11/24 @ 14:51 by Melissa Parker) Diabetes mellitus Chronic obstructive pulmonary disease Family History Father Diabetes Social History Smoking and tobacco/nicotine status: never used tobacco/nicotine Data Anesthesia Cardiac Studies: No Data to Display
[2024-11-19] MEDS: insulin regular-human 10 UNIT in SYRINGE 1 EACH 999 UNIT IVP (10:10)
[2024-11-19 10:12] LABS: Glucose Point of Care 256 mg/dL (70-110)
[2024-11-19] MEDS: EPINEPHrine 1 mg/mL INJ XX (10:31)
[2024-11-19 11:15] VITALS: BP 113/73; PULSE 86; RESP 18; TEMP 36.2; O2SAT 98
[2024-11-19 11:24] VITALS: BP 127/71; PULSE 88; RESP 18; TEMP 36.3; O2SAT 97
--- NOTE | 2024-11-19 11:55 | ANE.PACU2 ---
Inpatient post-anesthesia follow up: Airway intact: Yes Vital signs: Temperature 97.3 F Pulse Rate 88 Respiratory Rate 18 Blood Pressure 127/71 Pulse Oximetry 97 Oxygen Delivery Me thod Room Air Oxygen Flow Rate Fraction of Inspir ed Oxygen Hydration adequate: Yes Nausea and vomiting: No Pain level: 1 Mental status: Baseline
== END 2024-11-19 11:56 | disposition home or self-care (01) ==
PROVIDERS: PCP Nurse Practitioner Family; Visit Provider Student in an Organized Health Care Education/Training Program
PROC: 0DJ08ZZ Inspection of Upper Intestinal Tract, Via Natural or Artificial Opening Endoscopic (ICD-10-PCS; principal; 2024-11-19 10:30)
PROC: 0DJD8ZZ Inspection of Lower Intestinal Tract, Via Natural or Artificial Opening Endoscopic (ICD-10-PCS; CPT 45378; 2024-11-19 10:30)
DX: R10.9 Unspecified abdominal pain (principal); K20.90 Esophagitis, unspecified without bleeding; K31.7 Polyp of stomach and duodenum; K56.699 Other intestinal obstruction unspecified as to partial versus complete obstruction; I10 Essential (primary) hypertension; K21.9 Gastro-esophageal reflux disease without esophagitis; E11.9 Type 2 diabetes mellitus without complications; Z79.84 Long term (current) use of oral hypoglycemic drugs; J44.9 Chronic obstructive pulmonary disease, unspecified
CPT/HCPCS: 36416; 43236; 43239; 45380; 82962; 88305; J0171; J1815; J2704; J7040

== ENCOUNTER 2024-11-27 10:21 | Outpatient (CLI) | payer MEDICARE, MEDICAID, SELFPAY ==
--- NOTE | 2024-11-27 10:30 | CT_ITS ---
WS: [id number] CT chest w con* [id number] HISTORY: colon cancer TECHNIQUE: Axial imaging performed through the thorax. Coronal and sagittal reformats are submitted. All CT scans at [facility] use at least one of these dose optimization techniques: automated exposure control; mA and/or kV adjustment per patient size (includes targeted exams where dose is mat ched to clinical indication); or iterative reconstruction. CONTRAST: Omnipaque 350; 100 mL IV. DLP: 205.66 mGy.cm COMPARISON: CT abdomen 11/06/2024 Lungs and central airway: Mild pulmonary hyperexpansion. No pulmonary mass or nodule. No pneumonia. Pleura: Normal. No pleural effusion. Heart and pericardium: Normal size heart with no pericardial effusion. Mediastinum and slade: No mediastinum or hilar adenopathy. Vessels: Normal size aortic and pulmonary artery. No coronary artery calcifications. Chest wall and lower neck: No soft tissue masses. Upper abdomen: Normal. Osseous structures: No destructive process. CT/CT chest w con* [id number] IMPRESSION: 1. No pulmonary nodule or mass. 2. No pneumonia. 3. Normal size heart. 4. No mediastinal or hilar adenopathy.
[2024-11-27 10:58] LABS: Blood Urea Nitrogen 13 mg/dL (8-23)
[2024-11-27] MEDS: iohexol 350 mg/mL 500 mL Btl (per mL) IV (11:02)
== END 2024-11-27 10:22 | disposition home or self-care (01) ==
PROVIDERS: PCP Nurse Practitioner Family; Visit Provider Surgery
DX: C18.9 Malignant neoplasm of colon, unspecified (principal); R91.8 Other nonspecific abnormal finding of lung field
CPT/HCPCS: 71260; 82565; 84520

== ENCOUNTER → 2024-12-19 14:54 | Outpatient (BNVA) | payer MEDICARE, MEDICAID, SELFPAY | PROVIDERS: PCP Nurse Practitioner Family; Visit Provider Surgery | DX: Z12.11 Encounter for screening for malignant neoplasm of colon (principal) | CPT/HCPCS: 99024; 99213 ==

== ENCOUNTER → 2025-05-19 14:40 | Outpatient (BNVA) | payer MEDICARE, MEDICAID, SELFPAY | PROVIDERS: PCP Nurse Practitioner Family; Visit Provider Nurse Practitioner Family | DX: I10 Essential (primary) hypertension (principal); E11.9 Type 2 diabetes mellitus without complications | CPT/HCPCS: 80053; 80061; 83036; 84443; 85025 ==

== ENCOUNTER 2025-05-30 08:07 | Outpatient (CLI) | payer OTHER, SELFPAY ==
--- NOTE | 2025-05-30 08:30 | US_ITS ---
WS: [id number] Exam: US abdomen limited [id number] Date/Time of Exam: 05/30/2025 8:26 AM Reason For Exam: R19.00 - Intra-abdominal and pelvic swelling, mass and savi... Comparison 10/24/2024. The liver and pancreas are unremarkable. At least 2 stones noted in the gallbladder. No sign of acute cholecystitis. The common bile duct is not dilated and measures 4 mm in greatest diameter. The abdominal aorta is normal in caliber. The IVC is patent. Normal RIGHT kidney measures 9 x 4.8 x 4.4 cm. He patopetal flow in the portal vein. No mass or free fluid in the RIGHT abdomen. The patient directed lump in the LEFT lower quadrant of the abdomen was evaluated and demonstrated no obvious finding. US/US abdomen limited [id number] IMPRESSION: 1. Cholelithiasis but no sign of acute cholecystitis. 2. No mass, free fluid collection or other significant finding.
== END 2025-05-30 08:08 | disposition home or self-care (01) ==
LOC: RAD 08:10
PROVIDERS: PCP Nurse Practitioner Family; Visit Provider Nurse Practitioner Family
DX: K80.20 Calculus of gallbladder without cholecystitis without obstruction (principal)
CPT/HCPCS: 76705

== ENCOUNTER → 2025-06-02 14:12 | Outpatient (BNVA) | payer OTHER, SELFPAY | PROVIDERS: PCP Nurse Practitioner Family; Visit Provider Nurse Practitioner Family | DX: S92.512A Displaced fracture of proximal phalanx of left lesser toe(s), initial encounter for closed fracture (principal); X58.XXXA Exposure to other specified factors, initial encounter | CPT/HCPCS: 73630 ==

== ENCOUNTER → 2025-06-05 14:35 | Outpatient (BNVA) | payer OTHER, SELFPAY | PROVIDERS: PCP Nurse Practitioner Family; Visit Provider Podiatrist Foot & Ankle Surgery | DX: S92.515A Nondisplaced fracture of proximal phalanx of left lesser toe(s), initial encounter for closed fracture (principal); W22.8XXA Striking against or struck by other objects, initial encounter | CPT/HCPCS: 99204 ==

== ENCOUNTER → 2025-09-10 12:28 | Outpatient (BNVA) | payer OTHER, SELFPAY | PROVIDERS: PCP Nurse Practitioner Family; Visit Provider Nurse Practitioner Family | DX: J43.1 Panlobular emphysema (principal); E11.9 Type 2 diabetes mellitus without complications; R19.7 Diarrhea, unspecified | CPT/HCPCS: 80053; 80061; 80198; 84443; 85025 ==

== ENCOUNTER → 2025-10-22 09:02 | Outpatient (BNVA) | payer OTHER, SELFPAY | PROVIDERS: PCP Nurse Practitioner Family; Referring Provider Nurse Practitioner Family; Visit Provider Internal Medicine | DX: Z87.09 Personal history of other diseases of the respiratory system (principal); Z91.148 Patient's other noncompliance with medication regimen for other reason | CPT/HCPCS: 99204; Q3014 ==